=== PATIENT | female | born 1985 | race Two or more races ===

== ENCOUNTER 2024-02-24 14:07 | Emergency (ER) | payer OTHER ==
[2024-02-24 14:24] VITALS: RESP 20; TEMP 98.3
--- NOTE | 2024-02-24 14:25 | ED ---
Fall HPI - General Source: patient, RN notes reviewed Mode of arrival: ambulatory Limitations: no limitations <Cameron Nowak - Last Filed: 02/24/24 14:24> - General Source: patient, RN notes reviewed <Valeria Carney - Last Filed: 02/24/24 16:50> - General Chief Complaint: Fall Stated Complaint: Fall/Head Time Seen by Provider: 02/24/24 14:20 - History of Present Illness Initial Comments: Quick note 38-year-old female presents emergency department chief plaint of slip and fall on ice. Patient complains of head neck pain. She states that she fell like she fell days may have loss conscious patient states she has swelling on her posterior head. (Cameron Nowak) 38-year-old female presenting to the emergency department for evaluation of head injury 3 hours ago. States she had a slip and fall on ice, striking the back of her head on the concrete. States she may have briefly lost consciousness after the fall. She is reporting headache. Denies vision changes, nausea, vomiting. She does endorse swelling in her posterior head. Denies blood thinners. Denies other injuries from the fall. (Valeria Carney) - Related Data Previous Rx's Medication Instructions Recorded Hydrocodone/Acetaminophen 1 each PO Q4HR PRN #20 tablet 09/27/13 [Hydrocodone/Acetaminophen 5-325] Allergies Allergy/AdvReac Type Severity Reaction Status Date / Time No Known Allergies Allergy Verified 02/24/24 14:24 Review of Systems ROS Other: All systems not noted in ROS Statement are negative. <Cameron Nowak - Last Filed: 02/24/24 14:24> ROS Other: All systems not noted in ROS Statement are negative. <Valeria Carney - Last Filed: 02/24/24 16:50> ROS Statement: Those systems with pertinent positive or pertinent negative responses have been documented in the HPI. Past Medical History Past Medical History: Asthma History of Any Multi-Drug Resistant Organisms: None Reported Past Surgical History: Adenoidectomy, Cholecystectomy, Tonsillectomy Past Psychological History: No Psychological Hx Reported Smoking Status: Never smoker Past Alcohol Use History: None Reported Past Drug Use History: None Reported <Cameron Nowak - Last Filed: 02/24/24 14:24> General Exam Limitations: no limitations General appearance: alert, in no apparent distress <Cameron Nowak - Last Filed: 02/24/24 14:24> General appearance: alert, in no apparent distress Head exam: Present: normocephalic, other (Mild edema and tenderness on posterior aspect of head with no lacerations or active bleeding) Eye exam: Present: normal appearance, PERRL, EOMI. Absent: scleral icterus, conjunctival injection, periorbital swelling ENT exam: Present: normal exam, mucous membranes moist Neck exam: Present: normal inspection. Absent: tenderness, meningismus, lymphadenopathy Neurological exam: Present: alert, oriented X3, CN II-XII intact Psychiatric exam: Present: normal affect, normal mood Skin exam: Present: warm, dry, intact, normal color. Absent: rash <Valeria Carney - Last Filed: 02/24/24 16:50> - General Exam Comments Initial Comments: Visual Physical Exam Vital signs reviewed General: Well-appearing, nontoxic, no acute distress. Head: Normocephalic, atraumatic Eyes: PERRLA, EOMI ENT: Airway patent Chest: Nonlabored breathing Skin: No visual rash, normal skin tone Neuro: Alert and oriented 3 Musculoskeletal: No gross abnormalities (Cameron Nowak) Course Vital Signs 02/24/24 14:22 Temperature 98.3 F Pulse Rate 67 Respiratory 20 Rate Blood Pressure 140/76 O2 Sat by Pulse 100 Oximetry Medical Decision Making <Valeria Carney - Last Filed: 02/24/24 16:50> - Medical Decision Making Was pt. sent in by a medical professional or institution (, PA, MD SENIOR RESEARCH SCIENTIST, urgent care, hospital, or [place] health care facility...) When possible be specific @ -No Did you speak to anyone other than the patient for history (EMS, parent, family, police, friend...)? What history was obtained from this source @ -No Did you review nursing and triage notes (agree or disagree)? Why? @ -I reviewed and agree with nursing and triage notes Were old charts reviewed (outside hosp., previous admission, EMS record, old EKG, old radiological studies, urgent care reports/EKG's, [place] health care facility records)? Report findings @ -No old charts were reviewed Differential Diagnosis (chest pain, altered mental status, abdominal pain women, abdominal pain men, vaginal bleeding, weakness, fever, dyspnea, syncope, headache, dizziness, GI bleed, back pain, seizure, CVA, palpatations, mental health, musculoskeletal)? @ -Concussion, skull fracture, intracranial bleed, muscle strain EKG interpreted by me (3pts min.). @ -None X-rays interpreted by me (1pt min.). @ -None done CT interpreted by me (1pt min.). @ -CT brain and neck reveals no acute process, small left parietal soft tissue scalp contusion, paranasal sinus disease with air-fluid levels, no evidence of cervical spine fracture, mild multilevel degenerative disc disease U/S interpreted by me (1pt. min.). @ -None done What testing was considered but not performed or refused? (CT, X-rays, U/S, labs)? Why? @ -None What meds were considered but not given or refused? Why? @ -None Did you discuss the management of the patient with other professionals (professionals i.e. , PA, MD SENIOR RESEARCH SCIENTIST, lab, RT, psych nurse, social media intern, special population paraprofessional, teacher, chief marketing officer, registered nurse hh case manager)? Give summary @ -No Was smoking cessation discussed for >3mins.? @ -No Was critical care preformed (if so, how long)? @ -No Were there social determinants of health that impacted care today? How? (Homelessness, low income, unemployed, alcoholism, drug addiction, transportation, low edu. Level, literacy, decrease access to med. care, assisted, rehab)? @ -No Was there de-escalation of care discussed even if they declined (Discuss DNR or withdrawal of care, Hospice)? DNR status @ -No What co-morbidities impacted this encounter? (DM, HTN, Smoking, COPD, CAD, Cancer, CVA, ARF, Chemo, Hep., AIDS, mental health diagnosis, sleep apnea, morbid obesity)? @ -None Was patient admitted / discharged? Hospital course, mention meds given and route, prescriptions, significant lab abnormalities, going to OR and other pertinent info. @ -Discharge. 38-year-old female presenting for head injury with loss of consciousness. Patient underwent CT brain and neck which revealed no acute process, there is a small refill soft tissue scalp contusion, and no evidence of cervical spine fracture. Results discussed with patient. Patient was provided with analgesics. Appropriate return precautions and follow-up care discussed. Case was discussed with my ED attending Dr. Brooke. Undiagnosed new problem with uncertain prognosis? @ -No Drug Therapy requiring intensive monitoring for toxicity (Heparin, Nitro, Insulin, Cardizem)? @ -No Were any procedures done? @ -No Diagnosis/symptom? @ -Head injury with loss of consciousness Acute, or Chronic, or Acute on Chronic? @ -Acute Uncomplicated (without systemic symptoms) or Complicated (systemic symptoms)? @ -Uncomplicated Side effects of treatment? @ -No Exacerbation, Progression, or Severe Exacerbation? @ -No Poses a threat to life or bodily function? How? (Chest pain, [place], [place], pneumonia, PE, COPD, DKA, ARF, appy, cholecystitis, CVA, Diverticulitis, Homicidal, Suicidal, threat to staff... and all critical care pts) @ -No (Valeria Carney) Disposition <Cameron Nowak - Last Filed: 02/24/24 14:24> Is patient prescribed a controlled substance at d/c from ED?: No Time of Disposition: 16:49 <Valeria Carney - Last Filed: 02/24/24 16:50> Clinical Impression: Head injury, acute Disposition: HOME SELF-CARE Condition: Stable Instructions (If sedation given, give patient instructions): Head Injury (ED) Additional Instructions: Please return to the Emergency Department if symptoms worsen or any other concerns. Referrals: eKith Montesinos MD [Primary Care Provider] - 1-2 days
--- NOTE | 2024-02-24 15:03 | CT ---
EXAMINATION TYPE: CT brain cspine wo con CT DLP: 1600.9 mGycm, Automated exposure control for dose reduction was used. DATE OF EXAM: 02/24/2024 2:53 PM COMPARISON: None.. CLINICAL INDICATION:Female, 38 years old with history of pain; fell on ice/hit back of head TECHNIQUE: Brain: Multiple axial CT images of the brain were obtained without IV contrast. Cspine: Axial CT images from the skull base to the inferior aspect of T2 we obtained without intraven ous contrast. Coronal and sagittal reformatted images were also reviewed. FINDINGS: Brain: Extra-axial spaces: No abnormal extra-axial fluid collections. Ventricular system: Within normal limits Cerebral parenchyma: No acute intraparenchymal hemorrhage or mass effect. The lin-white junction is well differentiated. Cerebellum: Unremarkable. Mass effect: No evidence of midline shift. Intracranial vasculature: unremarkable Soft tissues: Small left parietal soft tissue scalp contusion. Calvarium/osseous structures: No depressed skull fracture. Paranasal sinuses and mastoid air cells: The mastoid air cells are clear. Aplasia of the bilateral fr ontal sinuses. Moderate mucosal thickening of the bilateral maxillary sinuses air-fluid levels. Mild mucosal thickening of the right sphenoid sinus with air-fluid level. Additional mild mucosal thickeni ng of the left sphenoid sinus. Visualized orbits: Orbital contents are intact. Cervical spine: Fracture: None. Osseous structures: Multilevel anterior osteophytosis from C4 through C7. Vertebral alignment: Within normal limits. Spinal canal/Neural Foramina: Broad-based disc bulge at C2-C3 with mild effacement of the anterior th ecal sac. Central disc protrusion suggested at C3-C4 with mild effacement of the anterior thecal sac. Posterior disc osteophyte complex at C5-C6 with minimal effacement of anterior thecal sac. No eviden ce for significant neural foraminal stenosis. Neck soft tissues: Prevertebral soft tissues are within normal limits. Other: The airway is patent. The lung apices are clear. IMPRESSION: 1. No acute intracranial process. 2. Small left parietal soft tissue scalp contusion. 3. Paranasal sinus disease with air-fluid levels. Correlate for acute sinusitis. 4. No evidence of cervical spine fracture. 5. Mild multilevel degenerative disc disease. [facility], , 02/24/2024 3:00 PM
[2024-02-24] MEDS: KETOROLAC 15 MG/ML 1 ML VIAL IM STA (16:07)
[2024-02-24 16:57] VITALS: BP 134/84; PULSE 68
== END 2024-02-24 16:57 | disposition home or self-care (01) ==
LOC: EC 14:07
DX: S00.03XA Contusion of scalp, initial encounter (principal); W00.0XXA Fall on same level due to ice and snow, initial encounter
CPT/HCPCS: 72125; 70450; 99283; 96372; J1885

== ENCOUNTER → 2024-05-26 | Outpatient (CLI) | payer OTHER ==
--- NOTE | 2024-05-27 18:39 | MR ---
EXAMINATION TYPE: MR brain wo/w con DATE OF EXAM: 05/26/2024 1:44 PM COMPARISON: None. CLINICAL INDICATION: Female, 38 years old with history of R51.9 HEADACHE, UNSPECIFIED, Headaches post head trauma TECHNIQUE: Multiplanar, multiecho imaging on a 3.0 Farrah magnet is performed through the brain. Stud y is performed within 24 hours of arrival to the hospital.Multiplanar, multiecho imaging on a 3.0 Rena la magnet is performed through the knee. IV Contrast: 11 mL Gadobutrol (None, if empty) FINDINGS: The craniovertebral junction is normal. The pituitary is normal. Optic chiasm appears normal Diffusion-weighted imaging is performed. No abnormal hyperintensity is present to suggest an acute i ntracranial infarct or acute ischemic change. Signal through the brain appears normal. There is a punctate hyperintensity within the right basal ga nglion which is nonspecific on the inversion recovery weighted sequence. This is not evident on diffu [place] or T2 weighted images. No blooming artifact is evident on the gradient images. Ventricles and sulci are appropriate for the patient age. No abnormal enhancement is evident. IMPRESSION: 1. No suspicious acute intracranial changes. [facility], , 05/27/2024 6:36 PM
== END | disposition home or self-care (01) ==
LOC: RADMRIMAIN 12:47
PROVIDERS: ATTEND Family Medicine
DX: G43.909 Migraine, unspecified, not intractable, without status migrainosus (principal)
CPT/HCPCS: 70553

== ENCOUNTER → 2024-07-08 | Outpatient (CLI) | payer OTHER ==
--- NOTE | 2024-07-09 07:12 | MR ---
EXAMINATION TYPE: MR angio head wo con DATE OF EXAM: 07/08/2024 COMPARISON: MRI brain May 26, 2024 HISTORY: having headaches every day, family history of aneurysm. TECHNIQUE: Time of flight images focusing on the [place] were performed without contrast.. 2-D and 3-D postprocessing imaging is performed on independent workstation and reviewed. FINDINGS: There are codominant vertebral arteries patent to the basilar junction. There are small [place] iber but patent bilateral posterior communicating arteries. Anterior circulation shows fenestrated an d patent anterior communicating artery. There is a tortuous course to the left anterior cerebral gamaliel ry. There is no large vessel occlusion or aneurysm noted. IMPRESSION: No large vessel occlusion or aneurysm noted at the level of the [place] of [place]. [facility], , 07/09/2024 7:10 AM
== END | disposition home or self-care (01) ==
LOC: RADMRIMAIN 17:06
PROVIDERS: ATTEND Family Medicine
DX: G43.909 Migraine, unspecified, not intractable, without status migrainosus (principal); Z82.49 Family history of ischemic heart disease and other diseases of the circulatory system
CPT/HCPCS: 70544